=== PATIENT | female | born 1970 | race African-American/Black ===

== ENCOUNTER 2016-11-25 15:22 | Inpatient (IN) | payer OTHER ==
[2016-11-25 16:55] VITALS: BMI 23.8
--- NOTE | 2016-11-25 17:15 | HP ---
CIWA Score - CIWA Score Nausea/Vomitin Muscle Tremors: 3 Anxiety: 3 Agitation: 3 Paroxysmal Sweats: 2 Orientation: 0-Oriented Tacttile Disturbances: 2-Mild Itch/Numbness/Burn Auditory Disturbances: 2-Mild Harshness/Frighten Visual Disturbances: 2-Mild Sensitivity Headache: 2-Mild CIWA-Ar Total Score: 22 Admission ROS [facility] - HPI Chief Complaint: i need help to stop drinking alcohol Allergies/Adverse Reactions: Allergies Allergy/AdvReac Type Severity Reaction Status Date / Time No Known Drug Allergies Allergy Verified 11/25/16 17:01 History of Present Illness: this 45 years old femlae with alcohol dependence,seeking help to stop drinking, last treatment 2004 [facility] hiv positive since 2004 syncope alcohol related longest period of sobriety 5 years hypothyroidism Exam Limitations: No Limitations - Ebola screening Have you traveled outside of the country in the last 21 days: No Have you had contact with anyone from an Ebola affected area: No Have you been sick,other than usual withdrawal symptoms: No Do you have a fever: No - Review of Systems Constitutional: Loss of Appetite, Night Sweats, Weakness, Unintentional Wgt. Loss EENT: reports: Nose Congestion Respiratory: reports: No Symptoms reported Cardiac: reports: No Symptoms Reported GI: reports: Nausea, Vomiting, Abdominal cramping : reports: No Symptoms Reported Musculoskeletal: reports: Back Pain, Muscle Pain Integumentary: reports: Dryness Neuro: reports: Headache, Tremors Endocrine: reports: No Symptoms Reported Hematology: reports: No Symptoms Reported, Anemia, Other (hiv) Psychiatric: reports: Anxious, Depressed Patient History - Patient Medical History Hx Anemia: Yes (non complaint) Hx Asthma: No Hx Chronic Obstructive Pulmonary Disease (COPD): No Hx Cancer: No Hx Cardiac Disorders: No Hx Congestive Heart Failure: No Hx Hypertension: No Hx Hypercholesterolemia: No Hx Pacemaker: No HX Cerebrovascular Accident: No Hx Seizures: No Hx Dementia: No Hx Diabetes: No Hx Gastrointestinal Disorders: No Hx Liver Disease: No Hx Genitourinary Disorders: No Hx Sexually Transmitted Disorders: No Hx Renal Disease (ESRD): No Hx Thyroid Disease: Yes (hypothyroid) Hx Human Immunodeficiency Virus (HIV): Yes Hx Hepatitis C: No Hx Depression: Yes (anxiety) Hx Suicide Attempt: No Hx Bipolar Disorder: No Hx Schizophrenia: No Other Medical History: no suicidal,no homicidal - Patient Surgical History Past Surgical History: Yes Hx Neurologic Surgery: No Hx Cataract Extraction: No Hx Cardiac Surgery: No Hx Lung Surgery: No Hx Breast Surgery: No Hx Breast Biopsy: No Hx Abdominal Surgery: No Hx Appendectomy: No Hx Cholecystectomy: No Hx Genitourinary Surgery: No Hx Section: No Hx Orthopedic Surgery: No Hx Hysterectomy: No Other Surgical History: Thyroidectomy partial right at age 28 years at [facility] Anesthesia Reaction: No - PPD History Documented Results: Positive w/proof PPD to be Administered?: No - Reproductive History Patient is a Female of Child Bearing Age (11 -55 yrs old): Yes Last Menstrual Period: 11/09/16 Patient : No - Smoking Cessation Smoking history: Current every day smoker Have you smoked in the past 12 months: Yes Aproximately how many cigarettes per day: 15 Cigars Per Day: 0 Hx Chewing Tobacco Use: No Initiated information on smoking cessation: Yes 'Breaking Loose' booklet given: 11/25/16 - Substance & Tx. History Hx Alcohol Use: Yes Hx Substance Use: No Substance Use Type: Alcohol Hx Substance Use Treatment: Yes ([facility] 2004) - Substances Abused Alcohol Route: Oral Frequency: Daily Amount used: 5 24oz and vodka 1/2 pint Age of first use: 10 Date of Last Use: 11/25/16 Family Disease History - Family Disease History Family Disease History: Heart Disease: Mother (dec'd chf, htn age 59), Other: Grandparent (unk), Father (a&w but med hx unk), Mother, Brother (4 a&w), Sister (0) Admission Physical Exam [facility] - Vital Signs Vital Signs: Vital Signs - 24 hr 11/25/16 16:51 Temperature 98.4 F Pulse Rate 81 Respiratory 18 Rate Blood Pressure 152/89 - Physical General Appearance: Yes: Moderate Distress, Tremorous, Irritable, Sweating, Anxious HEENTM: Yes: Normal ENT Inspection, PAVAN, Pharynx Normal Respiratory: Yes: Within Normal Limits, Lungs Clear, Normal Breath Sounds Neck: Yes: Supple, Trachea in good position, Other (s/p partial thyroidectomy) Breast: Yes: Breast Exam Deferred Cardiology: Yes: Regular Rhythm, S1, S2 Abdominal: Yes: Within Normal Limits, Normal Bowel Sounds, Non Tender, Flat, Soft Genitourinary: Yes: Within Normal Limits Musculoskeletal: Yes: Back pain, Muscle Pain Extremities: Yes: Tremors Neurological: Yes: nurse midwife II-XII NML intact, Fully Oriented, Alert, Motor Strength 5/5 Integumentary: Yes: Dry Lymphatic: Yes: Within Normal Limits - Diagnostic (1) Alcohol dependence with uncomplicated withdrawal Current Visit: Yes Status: Acute (2) Syncope Current Visit: Yes Status: Acute (3) Positive PPD Current Visit: Yes Status: Acute (4) Anxiety and depression Current Visit: Yes Status: Acute (5) Anemia Current Visit: No Status: Acute Comment: ?fibroids? to see roving technician tomorrow. check labs today. provided with obf x 3 to bring back. denies sob/dizziness/palpitations. (6) HIV (human immunodeficiency virus infection) Current Visit: No Status: Chronic Comment: undetectable hiv vl, stable cd4, cont meds, monitor. (7) Hypothyroid Current Visit: No Status: Chronic Comment: cont f/u with endo dr. elam and will cont current dose of synthroid. labs stable. (8) Nicotine dependence Current Visit: No Status: Chronic Comment: not ready to quit at this time, cont to support and monitor. (9) Positive PPD, treated Current Visit: No Status: Chronic Comment: monitor annual cxr - wnl. Cleared for Admission [facility] - Detox or Rehab [facility] Level of Care: Medically Managed Detox Regimen/Protocol: Librium [facility] Breath Alcohol Content Breath Alcohol Content: 0 Urine Pregancy Test - Result Urine Test Results: Negative- NO Line Present Urine Drug Screen - Results Drug Screen Negative: Yes
[2016-11-25] MEDS ORDERED: hydrOXYzine PAMOATE 25 MG CAPSULE (FP) PO PRN (17:29)
[2016-11-25] MEDS ORDERED: MAG HYDROX/AL HYDROX/SIMETH 30 ML UNIT-DOSE CUP PO PRN (17:29)
[2016-11-25] MEDS ORDERED: MAGNESIUM CITRATE 300 ML BOTTLE PO PRN (17:29)
[2016-11-25] MEDS ORDERED: IBUPROFEN 400 MG TABLET (FP) PO PRN (17:29)
[2016-11-25] MEDS ORDERED: chlordiazePOXIDE HCL 25 MG CAPSULE PO PRN (17:29)
[2016-11-25] MEDS ORDERED: guaiFENesin/D-METHORPHAN HB 10 ML UNIT-DOSE CUPS PO PRN (17:29)
[2016-11-25] MEDS ORDERED: MENTHOL/PHENOL 1 EACH UD MM PRN (17:29)
[2016-11-25] MEDS ORDERED: ACETAMINOPHEN 325 MG TABLET (FP) PO PRN (17:29)
[2016-11-25] MEDS ORDERED: LOPERAMIDE HCL 2 MG CAPSULE PO PRN (17:29)
[2016-11-25] MEDS ORDERED: P-EPHED 60MG/TRIPROLIDI 2.5MG TABLET PO PRN (17:29)
[2016-11-25] MEDS ORDERED: MAGNESIUM HYDROX 2400MG/30ML ORAL SUSPENSION 30 ML CUP PO PRN (17:29)
[2016-11-25] MEDS ORDERED: chlordiazePOXIDE HCL 25 MG CAPSULE PO ONE (18:15)
[2016-11-25] MEDS: NICOTINE 21 MG/24 HOURS TOPICAL PATCH TD SCH (18:55)
[2016-11-25] MEDS: THIAMINE HCL 100 MG TABLET (FP) PO SCH (22:17)
[2016-11-25] MEDS: chlordiazePOXIDE HCL 25 MG CAPSULE PO SCH (22:17)
[2016-11-25 23:50] LABS: URINE APPEARANCE CLEAR; URINE BILIRUBIN NEGATIVE (NEGATIVE); URINE BLOOD NEGATIVE (NEGATIVE); URINE COLOR STRAW; URINE GLUCOSE (UA) NEGATIVE (NEGATIVE); URINE KETONE NEGATIVE (NEGATIVE); URINE LEUK ESTERASE NEGATIVE (NEGATIVE); URINE NITRITE NEGATIVE (NEGATIVE); URINE PROTEIN NEGATIVE (NEGATIVE); URINE UROBILINOGEN NEGATIVE mg/dL (0.2-1.0)
[2016-11-26] MEDS: chlordiazePOXIDE HCL 25 MG CAPSULE PO SCH ×4 (05:29→22:42)
[2016-11-26] MEDS ORDERED: FERROUS SO4 325 MG TABLET (FP) PO SCH (08:00)
[2016-11-26] MEDS: LEVOTHYROXINE NA 112 MCG TABLET (FP) PO SCH (08:02)
[2016-11-26] MEDS: EMTRICITAB/RILPIVIRINE/TENOFOV 1 EACH TABLET PO SCH (08:09)
[2016-11-26] MEDS: NICOTINE POLACRILEX 2 MG GUM BUC PRN (08:09)
[2016-11-26] MEDS ORDERED: ERGOCALCIFEROL (VITAMIN D2) 50,000 UNIT CAPSULE (FP) PO SCH (10:00)
[2016-11-26 10:27] LABS: MCH 27.2 pg (25.7-33.7); MCHC 31.6 g/dl (32.0-36.0); MEAN CELL VOLUME 86.1 fl (80-96); MEAN PLT VOLUME 8.1 fl (7.5-11.1); PLATELET COUNT 301 K/MM3 (134-434); RDW 20.4 % (11.6-15.6); WHITE BLOOD COUNT 5.8 K/mm3 (4.0-10.0)
[2016-11-26] MEDS: PRENATAL VITAMINS W/ FOLIC ACID TABLET (FP) PO SCH (10:27)
[2016-11-26] MEDS: OMEGA-3 ACID ETHYL ESTERS (FATTY-ACIDS) 1 GM CAPSULE (FP) PO SCH (10:27)
[2016-11-26] MEDS: NICOTINE 21 MG/24 HOURS TOPICAL PATCH TD SCH (10:29)
[2016-11-26 10:53] LABS: ALBUMIN 3.5 g/dl (3.4-5.0); ANION GAP 5 (8-16); CALCIUM 8.4 mg/dL (8.5-10.1); CO2 29 mmol/L (21-32); GLUCOSE,RANDOM 79 mg/dL (74-106)
[2016-11-26 10:57] LABS: ALK PHOS 39 U/L (45-117); BILIRUBIN,TOTAL 0.3 mg/dL (0.2-1.0); SGOT/AST 20 U/L (15-37); SGPT/ALT 17 U/L (12-78); TOT PROT 6.8 g/dl (6.4-8.2)
--- NOTE | 2016-11-26 13:32 | PN ---
[facility] CIWA - CIWA Score Nausea/Vomitin-Mild Nausea/No Vomiting Muscle Tremors: 4-Moderate,w/Arms Extend Anxiety: 3 Agitation: 3 Paroxysmal Sweats: 3 Orientation: 0-Oriented Tacttile Disturbances: 0-None Auditory Disturbances: 0-None Visual Disturbances: 0-None Headache: 0-None Present CIWA-Ar Total Score: 14 S Progress Note (SOAP) Subjective: Anxiety,tremors,sweating,interrupted sleep,restless. Objective: 11/26/16 13:29 Vital Signs - 8 hr 11/26/16 11/26/16 06:00 10:00 Temperature 98.1 F 98.2 F Pulse Rate 66 65 Respiratory 16 18 Rate Blood Pressure 134/67 147/90 Laboratory Last Values WBC 5.8 K/mm3 (4.0-10.0) 11/26/16 07:45 RBC 3.44 M/mm3 (3.60-5.2) L 11/26/16 07:45 Hgb 9.4 GM/dL (10.7-15.3) L 11/26/16 07:45 Hct 29.6 % (32.4-45.2) L 11/26/16 07:45 MCV 86.1 fl (80-96) 11/26/16 07:45 MCH 27.2 pg (25.7-33.7) 11/26/16 07:45 MCHC 31.6 g/dl (32.0-36.0) L 11/26/16 07:45 RDW 20.4 % (11.6-15.6) H 11/26/16 07:45 Plt Count 301 K/MM3 (134-434) 11/26/16 07:45 MPV 8.1 fl (7.5-11.1) 11/26/16 07:45 Sodium 138 mmol/L (136-145) 11/26/16 07:45 Potassium 4.0 mmol/L (3.5-5.1) 11/26/16 07:45 Chloride 104 mmol/L (98-107) 11/26/16 07:45 Carbon Dioxide 29 mmol/L (21-32) 11/26/16 07:45 Anion Gap 5 (8-16) L 11/26/16 07:45 BUN 11 mg/dL (7-18) 11/26/16 07:45 Creatinine 1.0 mg/dL (0.55-1.02) D 11/26/16 07:45 Creat Clearance w eGFR 59.43 (>60) 11/26/16 07:45 Random Glucose 79 mg/dL (74-106) 11/26/16 07:45 Calcium 8.4 mg/dL (8.5-10.1) L 11/26/16 07:45 Total Bilirubin 0.3 mg/dL (0.2-1.0) D 11/26/16 07:45 AST 20 U/L (15-37) 11/26/16 07:45 ALT 17 U/L (12-78) D 11/26/16 07:45 Alkaline Phosphatase 39 U/L (45-117) L 11/26/16 07:45 Total Protein 6.8 g/dl (6.4-8.2) 11/26/16 07:45 Albumin 3.5 g/dl (3.4-5.0) 11/26/16 07:45 Urine Color Straw 11/25/16 23:35 Urine Appearance Clear 11/25/16 23:35 Urine pH 6.0 (5.0-8.0) 11/25/16 23:35 Ur Specific [place] <= 1.005 (1.005-1.025) 11/25/16 23:35 Urine Protein Negative (NEGATIVE) 11/25/16 23:35 Urine Glucose (UA) Negative (NEGATIVE) 11/25/16 23:35 Urine Ketones Negative (NEGATIVE) 11/25/16 23:35 Urine Blood Negative (NEGATIVE) 11/25/16 23:35 Urine Nitrite Negative (NEGATIVE) 11/25/16 23:35 Urine Bilirubin Negative (NEGATIVE) 11/25/16 23:35 Urine Urobilinogen Negative mg/dL (0.2-1.0) 11/25/16 23:35 Ur Leukocyte Esterase Negative (NEGATIVE) 11/25/16 23:35 RPR Titer Nonreactive (NONREACTIVE) 11/26/16 07:45 labs noted, continue feosol Assessment: 11/26/16 13:30 Withdrawal sx. Plan: Continue detox
[2016-11-26] MEDS: FERROUS SO4 325 MG TABLET (FP) PO SCH (17:32)
--- NOTE | 2016-11-26 17:54 | CONSULT ---
[facility] Psychiatric Consult - Data Date of interview: 11/26/16 Admission source: [facility] Identifying data: Readmission to [facility] for this 45 y/o AA female seeking detox treatment on for alcohol dependence.Patient is single without children,domiciled and currently employed. Substance Abuse History: Discussed with the patient.She confirms this [facility] report. Smoking Cessation. Smoking history: Current every day smoker. Have you smoked in the past 12 months: Yes. Aproximately how many cigarettes per day : 15. Cigars Per Day: 0. Hx Chewing Tobacco Use: No. Initiated information on smoking cessation: Yes. 'Breaking Loose' booklet given: 11/25/16. - Substance & Tx. History. Hx Alcohol Use: Yes. Hx Substance Use: No. Substance Use Type: Alcohol. Hx Substance Use Treatment: Yes ([facility] 2004). - Substances Abused. Alcohol. Route: Oral. Frequency: Daily. Amount used: 5 24oz and vodka 1/2 pint. Age of first use: 10. Date of Last Use: 11/25/16 Medical History: HIV infection since 2000 (on ART medications) and history of Graves Disease.History of partial thyroidectomy at age 28 (now on synthroid). Psychiatric History: No reported history ofmpsychiatric hospitalizations.Diagnosed with MDD and Anxiety Disorder (patient's report).Ms Dickerson gets her outpatient psychiatric services at the [facility] in [facility].Managed by psychiatrist,Dr Dee with lexapro 10 mg/ day.No history of suicide attempts. Physical/Sexual Abuse/Trauma History: Patient denies. Additional Comment: Drug Screen is negative. Mental Status Exam - Mental Status Exam Alert and Oriented to: Time, Place, Person Cognitive Function: Good Patient Appearance: Well Groomed Mood: Hopeful, Euthymic Affect: Appropriate, Normal Range Patient Behavior: Appropriate, Cooperative Speech Pattern: Clear, Appropriate Voice Loudness: Normal Thought Process: Intact, Goal Oriented Thought Disorder: Not Present Hallucinations: Denies Suicidal Ideation: Denies Homicidal Ideation: Denies Insight/Judgement: Fair Sleep: Well Appetite: Good Muscle strength/Tone: Normal Gait/Station: Normal Psychiatric Findings - Problem List ([place] 1, 2,3) (1) Alcohol dependence with uncomplicated withdrawal Current Visit: Yes Status: Acute (2) Nicotine dependence Current Visit: Yes Status: Acute Comment: not ready to quit at this time, cont to support and monitor. (3) Depressive disorder Current Visit: Yes Status: Acute (4) Positive PPD Current Visit: Yes Status: Acute (5) Anemia Current Visit: Yes Status: Chronic Comment: ?fibroids? to see sr. manager tomorrow. check labs today. provided with obf x 3 to bring back. denies sob/dizziness/palpitations. (6) HIV (human immunodeficiency virus infection) Current Visit: Yes Status: Chronic Comment: undetectable hiv vl, stable cd4, cont meds, monitor. (7) Hypercholesteremia Current Visit: Yes Status: Chronic Comment: fasting labs today. (8) Hypothyroid Current Visit: Yes Status: Chronic Comment: cont f/u with endo dr. elam and will cont current dose of synthroid. labs stable. (9) Positive PPD, treated Current Visit: Yes Status: Chronic Comment: monitor annual cxr - wnl. - Initial Treatment Plan Initial Treatment Plan: Psychoeducation is provided in this session.Detoxification is under way.Lexapro 10 mg po daily.Side effects/ benefits discussed with patient.Ms Dickerson is in agreement with plan to continue this regimen.Observation.NO need for scripts at discharge (supply is still available from last refill on 11/09/16).
[2016-11-26] MEDS: THIAMINE HCL 100 MG TABLET (FP) PO SCH (22:42)
[2016-11-27] MEDS: chlordiazePOXIDE HCL 25 MG CAPSULE PO SCH ×3 (06:02→17:09)
[2016-11-27] MEDS: LEVOTHYROXINE NA 112 MCG TABLET (FP) PO SCH (06:03)
[2016-11-27] MEDS: FERROUS SO4 325 MG TABLET (FP) PO SCH ×2 (07:56→17:08)
[2016-11-27] MEDS: EMTRICITAB/RILPIVIRINE/TENOFOV 1 EACH TABLET PO SCH (07:57)
[2016-11-27] MEDS: ESCITALOPRAM OXALATE 10 MG TABLET (FP) PO SCH (10:25)
[2016-11-27] MEDS: NICOTINE 21 MG/24 HOURS TOPICAL PATCH TD SCH (10:25)
[2016-11-27] MEDS: OMEGA-3 ACID ETHYL ESTERS (FATTY-ACIDS) 1 GM CAPSULE (FP) PO SCH (10:25)
[2016-11-27] MEDS: PRENATAL VITAMINS W/ FOLIC ACID TABLET (FP) PO SCH (10:25)
--- NOTE | 2016-11-27 11:31 | PN ---
[facility] CIWA - CIWA Score Nausea/Vomitin-No Nausea/No Vomiting Muscle Tremors: 3 Anxiety: 3 Agitation: 4-Moderately Restless Paroxysmal Sweats: 3 Orientation: 0-Oriented Tacttile Disturbances: 0-None Auditory Disturbances: 0-None Visual Disturbances: 0-None Headache: 0-None Present CIWA-Ar Total Score: 13 S Progress Note (SOAP) Subjective: Anxiety,tremors,sweating,interrupted sleep,restless Objective: 11/27/16 11:30 Vital Signs - 8 hr 11/27/16 11/27/16 06:00 10:00 Temperature 97.9 F 98.8 F Pulse Rate 68 67 Respiratory 16 16 Rate Blood Pressure 122/76 126/67 Laboratory Last Values WBC 5.8 K/mm3 (4.0-10.0) 11/26/16 07:45 RBC 3.44 M/mm3 (3.60-5.2) L 11/26/16 07:45 Hgb 9.4 GM/dL (10.7-15.3) L 11/26/16 07:45 Hct 29.6 % (32.4-45.2) L 11/26/16 07:45 MCV 86.1 fl (80-96) 11/26/16 07:45 MCH 27.2 pg (25.7-33.7) 11/26/16 07:45 MCHC 31.6 g/dl (32.0-36.0) L 11/26/16 07:45 RDW 20.4 % (11.6-15.6) H 11/26/16 07:45 Plt Count 301 K/MM3 (134-434) 11/26/16 07:45 MPV 8.1 fl (7.5-11.1) 11/26/16 07:45 Sodium 138 mmol/L (136-145) 11/26/16 07:45 Potassium 4.0 mmol/L (3.5-5.1) 11/26/16 07:45 Chloride 104 mmol/L (98-107) 11/26/16 07:45 Carbon Dioxide 29 mmol/L (21-32) 11/26/16 07:45 Anion Gap 5 (8-16) L 11/26/16 07:45 BUN 11 mg/dL (7-18) 11/26/16 07:45 Creatinine 1.0 mg/dL (0.55-1.02) D 11/26/16 07:45 Creat Clearance w eGFR 59.43 (>60) 11/26/16 07:45 Random Glucose 79 mg/dL (74-106) 11/26/16 07:45 Calcium 8.4 mg/dL (8.5-10.1) L 11/26/16 07:45 Total Bilirubin 0.3 mg/dL (0.2-1.0) D 11/26/16 07:45 AST 20 U/L (15-37) 11/26/16 07:45 ALT 17 U/L (12-78) D 11/26/16 07:45 Alkaline Phosphatase 39 U/L (45-117) L 11/26/16 07:45 Total Protein 6.8 g/dl (6.4-8.2) 11/26/16 07:45 Albumin 3.5 g/dl (3.4-5.0) 11/26/16 07:45 Urine Color Straw 11/25/16 23:35 Urine Appearance Clear 11/25/16 23:35 Urine pH 6.0 (5.0-8.0) 11/25/16 23:35 Ur Specific [place] <= 1.005 (1.005-1.025) 11/25/16 23:35 Urine Protein Negative (NEGATIVE) 11/25/16 23:35 Urine Glucose (UA) Negative (NEGATIVE) 11/25/16 23:35 Urine Ketones Negative (NEGATIVE) 11/25/16 23:35 Urine Blood Negative (NEGATIVE) 11/25/16 23:35 Urine Nitrite Negative (NEGATIVE) 11/25/16 23:35 Urine Bilirubin Negative (NEGATIVE) 11/25/16 23:35 Urine Urobilinogen Negative mg/dL (0.2-1.0) 11/25/16 23:35 Ur Leukocyte Esterase Negative (NEGATIVE) 11/25/16 23:35 RPR Titer Nonreactive (NONREACTIVE) 11/26/16 07:45 labs noted Assessment: 11/27/16 11:30 Withdrawal sx. Plan: Continue detox
--- NOTE | 2016-11-27 13:57 | EKG ---
Test Reason : Blood Pressure : / mmHG Vent. Rate : 071 BPM Atrial Rate : 071 BPM P-R Int : 132 ms QRS Dur : 088 ms QT Int : 396 ms P-R-T Axes : 055 075 032 degrees QTc Int : 430 ms NORMAL SINUS RHYTHM T WAVE ABNORMALITY, CONSIDER ANTERIOR ISCHEMIA ABNORMAL ECG WHEN COMPARED WITH ECG OF 25-NOV-2016 18:04, NONSPECIFIC T WAVE ABNORMALITY NOW EVIDENT IN LATERAL LEADS CLINICAL CORRELATION IS RECOMMENDED Confirmed by RUPA RASMUSSEN, AUGUSTUS ([id number]) on 11/27/2016 1:57:08 PM Referred By: Confirmed By:AUGUSTUS GOODE MD
--- NOTE | 2016-11-27 14:00 | EKG ---
Test Reason : Blood Pressure : / mmHG Vent. Rate : 066 BPM Atrial Rate : 066 BPM P-R Int : 126 ms QRS Dur : 082 ms QT Int : 400 ms P-R-T Axes : 054 082 051 degrees QTc Int : 419 ms NORMAL SINUS RHYTHM T WAVE ABNORMALITY, CONSIDER ANTERIOR ISCHEMIA ABNORMAL ECG NO PREVIOUS ECGS AVAILABLE CLINICAL CORRELATION IS RECOMMENDED Confirmed by AUGUSTUS GOODE MD ([id number]) on 11/27/2016 1:59:55 PM Referred By: Confirmed By:AUGUSTUS GOODE MD
[2016-11-27] MEDS: chlordiazePOXIDE 5 MG CAPSULE PO SCH (22:27)
[2016-11-27] MEDS: THIAMINE HCL 100 MG TABLET (FP) PO SCH (22:28)
[2016-11-28] MEDS: diphenhydrAMINE HCL 50 MG CAPSULE PO PRN ×2 (00:26→22:44)
[2016-11-28] MEDS: chlordiazePOXIDE 5 MG CAPSULE PO SCH ×3 (05:27→17:48)
[2016-11-28] MEDS: EMTRICITAB/RILPIVIRINE/TENOFOV 1 EACH TABLET PO SCH (07:50)
[2016-11-28] MEDS: LEVOTHYROXINE NA 112 MCG TABLET (FP) PO SCH (07:50)
[2016-11-28] MEDS: FERROUS SO4 325 MG TABLET (FP) PO SCH ×2 (07:50→17:48)
[2016-11-28] MEDS: NICOTINE POLACRILEX 2 MG GUM BUC PRN ×3 (09:07→22:44)
[2016-11-28] MEDS: PRENATAL VITAMINS W/ FOLIC ACID TABLET (FP) PO SCH (10:48)
[2016-11-28] MEDS: OMEGA-3 ACID ETHYL ESTERS (FATTY-ACIDS) 1 GM CAPSULE (FP) PO SCH (10:48)
[2016-11-28] MEDS: NICOTINE 21 MG/24 HOURS TOPICAL PATCH TD SCH (10:49)
[2016-11-28] MEDS: ESCITALOPRAM OXALATE 10 MG TABLET (FP) PO SCH (10:49)
--- NOTE | 2016-11-28 11:17 | PN ---
[facility] Progress Note (SOAP) Subjective: feeling better sweats Objective: 11/28/16 11:16 Vital Signs Temperature 98.4 F 11/28/16 10:23 Pulse Rate 70 11/28/16 10:23 Respiratory Rate 18 11/28/16 10:23 Blood Pressure 111/61 11/28/16 10:23 O2 Sat by Pulse Oximetry (%) awake/alert ambulating no acute distress Assessment: 11/28/16 11:16 withdrawal sx Plan: continue detox increase fluids d/c in am
[2016-11-28] MEDS: THIAMINE HCL 100 MG TABLET (FP) PO SCH (22:43)
[2016-11-28] MEDS: chlordiazePOXIDE HCL 10 MG CAPSULE PO SCH (22:43)
[2016-11-29] MEDS ORDERED: chlordiazePOXIDE 5 MG CAPSULE ONE (04:10)
[2016-11-29] MEDS: chlordiazePOXIDE HCL 10 MG CAPSULE PO SCH ×2 (05:49→10:08)
[2016-11-29 06:33] VITALS: BP 125/50; PULSE 78; TEMP 98.8
[2016-11-29] MEDS: FERROUS SO4 325 MG TABLET (FP) PO SCH (07:48)
[2016-11-29] MEDS: LEVOTHYROXINE NA 112 MCG TABLET (FP) PO SCH (07:48)
[2016-11-29] MEDS: EMTRICITAB/RILPIVIRINE/TENOFOV 1 EACH TABLET PO SCH (07:49)
--- NOTE | 2016-11-29 09:07 | DS ---
[facility] Detox Discharge Summary Admission Date: 11/25/16 Discharge Date: 11/29/16 - History Present History: Alcohol Dependence - Physical Exam Results Vital Signs: Vital Signs Temperature 98.8 F 11/29/16 06:32 Pulse Rate 78 11/29/16 06:32 Respiratory Rate 18 11/29/16 06:32 Blood Pressure 125/50 11/29/16 06:32 O2 Sat by Pulse Oximetry (%) - Treatment Hospital Course: Detox Protocol Followed, Detoxed Safely, Responded well, Discharged Condition Good, Rehab Referral Accepted - Medication Discharge Medications: Ambulatory Orders Multivitamin [Multivitamins] 1 each PO DAILY 10/17/11 Ferrous Sulfate 325 mg PO DAILY 04/01/15 [place] Oil/[place]-3 Fatty Acids [Fish Oil 500 mg Softgel] 2 each PO DAILY #60 capsule 02/10/16 Emtricitab/Rilpivirine/Tenofov [Complera Tablet -] 1 tab PO DAILY #30 tablet Levothyroxine [Synthroid -] 112 mcg PO DAILY #30 tablet 06/30/16 Cholecalciferol (Vitamin D3) [Vitamin D3] 50,000 unit PO WEEKLY #4 capsule 09/29 Escitalopram Oxalate [Lexapro -] 10 mg PO DAILY #30 tablet 11/09/16 - Diagnosis (1) Anxiety and depression Current Visit: Yes Status: Acute (2) Depressive disorder Current Visit: Yes Status: Acute (3) Alcohol dependence with uncomplicated withdrawal Current Visit: Yes Status: Chronic (4) HIV (human immunodeficiency virus infection) Current Visit: Yes Status: Chronic (5) Hypercholesteremia Current Visit: Yes Status: Chronic (6) Hypothyroid Current Visit: Yes Status: Chronic Qualifiers: Hypothyroidism type: acquired Qualified Code(s): E03.9 - Hypothyroidism, unspecified (7) Nicotine dependence Current Visit: Yes Status: Chronic Qualifiers: Nicotine product type: cigarettes Substance use status: uncomplicated Qualified Code(s): F17.210 - Nicotine dependence, cigarettes, uncomplicated (8) Positive PPD, treated Current Visit: Yes Status: Chronic (9) Syncope Current Visit: Yes Status: Suspected - AMA Did Patient Leave Against Medical Advice: No
[2016-11-29] MEDS: ESCITALOPRAM OXALATE 10 MG TABLET (FP) PO SCH (09:24)
[2016-11-29] MEDS: PRENATAL VITAMINS W/ FOLIC ACID TABLET (FP) PO SCH (09:24)
[2016-11-29] MEDS: NICOTINE 21 MG/24 HOURS TOPICAL PATCH TD SCH (09:26)
[2016-11-29] MEDS: OMEGA-3 ACID ETHYL ESTERS (FATTY-ACIDS) 1 GM CAPSULE (FP) PO SCH (10:08)
== END 2016-11-29 09:30 | disposition home or self-care (01) | DRG 775 ==
LOC: YASAS 15:22 → Y6N 17:11
PROVIDERS: ADMIT Internal Medicine; ATTEND Internal Medicine
PROC: HZ2ZZZZ Detoxification Services for Substance Abuse Treatment (ICD-10-PCS; principal; 2016-11-25)
DX: F10.230 Alcohol dependence with withdrawal, uncomplicated (principal); F17.210 Nicotine dependence, cigarettes, uncomplicated; F41.9 Anxiety disorder, unspecified; F32.9 Major depressive disorder, single episode, unspecified; Z21 Asymptomatic human immunodeficiency virus [HIV] infection status; E78.00 Pure hypercholesterolemia, unspecified; E03.9 Hypothyroidism, unspecified; D64.9 Anemia, unspecified; R76.11 Nonspecific reaction to tuberculin skin test without active tuberculosis; Z86.79 Personal history of other diseases of the circulatory system; Z91.14 Patient's other noncompliance with medication regimen; Z87.898 Personal history of other specified conditions
CPT/HCPCS: 36415; 80053; 81003; 85027; 86593; 93005; 93010

== ENCOUNTER → 2021-07-15 | Day surgery (SDC) | payer OTHER | END | disposition home or self-care (01) | LOC: FMAMMOTONE 10:11 | PROVIDERS: ATTEND Nurse Practitioner | PROC: 0HBT3ZX Excision of Right Breast, Percutaneous Approach, Diagnostic (ICD-10-PCS; principal; 2021-07-15) | DX: N60.11 Diffuse cystic mastopathy of right breast (principal); N60.31 Fibrosclerosis of right breast; N64.89 Other specified disorders of breast; R92.0 Mammographic microcalcification found on diagnostic imaging of breast | CPT/HCPCS: 19081; 76098-TC-FY; 87899; 88305-TC; A4648 ==